=== PATIENT | female | born 1970 | race Caucasian/White ===

== ENCOUNTER → 2017-02-23 | Outpatient (CLI) | payer OTHER ==
[~2017-02-23] MED LIST: CARI1TAB45 PO; CLON1TAB PO; DULO1CAP2 PO; FERR325C PO; FERR325T18 PO; FIBE625T10 PO; FISHCAP4 PO; GABA600T PO; IMIT25TA PO; MAGN250T11 PO; NAPR500T2 PO; OMEP20CA2 PO
== END ==
LOC: CPRE 13:47
PROVIDERS: ATTEND Obstetrics & Gynecology Gynecology
DX: Z01.812 Encounter for preprocedural laboratory examination (principal); N81.11 Cystocele, midline; N81.6 Rectocele

== ENCOUNTER → 2017-03-08 | Day surgery (SDC) | payer OTHER ==
--- NOTE | 2017-02-23 15:11 | MH ---
cc: JAC CONTEH MD,CASIMIRO Farfan MD DATE OF ADMISSION: 03/08/2017 REASON FOR ADMISSION Anterior posterior repair, pelvic repair. DATE OF 1970 HISTORY OF PRESENT ILLNESS The patient is a 46-year-old white female, 2, para 2, who had issues with pelvic organ prolapse and dyspareunia. In the office it was noted that she had a POP-Q score Aa of -1, Ap of +1 and a genital hiatus of 10 with a perineal body of 1. The patient had been given options and has opted for surgical repair. PAST MEDICAL HISTORY Notable for: 1. Neuropathy of uncertain etiology. 2. Irritable bowel syndrome. 3. Mild depression. PAST SURGICAL HISTORY 1. Appendectomy. 2. NovaSure endometrial ablation. ALLERGIES ZOSYN - CAUSES A RASH. MEDICATIONS 1. Omeprazole 20 mg daily. 2. Gabapentin 600 mg b.i.d. 3. Cymbalta 30 mg daily. 4. Clonazepam 1 mg p.r.n. GYNECOLOGIC HISTORY No STDs or abnormal Pap smears. Endometrial ablation by Dr. Dunbar a few weeks ago. OBSTETRICAL HISTORY Two vaginal deliveries, largest baby 9 pounds. FAMILY HISTORY Noncontributory. SOCIAL HISTORY 15 pack-year smoking history, vapes now. No cigarettes. . Has good social support. REVIEW OF SYSTEMS As above. No chest pain, orthopnea, PND. No nausea, vomiting, fevers, chills. No vaginal bleeding or discharge. Main issue is with pelvic organ prolapse or pelvic pressure and lack of sensation during intercourse. PHYSICAL EXAMINATION VITAL SIGNS: On exam she is afebrile. Vital signs are stable. Blood pressure 120/70, height is 5 feet 8 inches, weight is 175, BMI is 27. GENERAL: Patient is alert and oriented, no acute distress. No sign of cognitive dysfunction or depression. HEENT: Within normal limits. NECK: Supple. No JVD. CHEST: Clear. HEART: Regular rate and rhythm. ABDOMEN: Soft, nontender. No hepatosplenomegaly noted. No CVA tenderness. PELVIC EXAM: In the office shows POP-Q score: Aa is -1, Ap is +1. Point C is -6. Genital hiatus is 10. Perineal body is 1. Total vaginal length is 10. Elevator muscle strength is 2/5. Sacral nerve reflexes normal. Further exam under anesthesia. EXTREMITIES: Normal skin without rashes. NEURO EXAM: Nonfocal. No DVT signs. ASSESSMENT Rectocele code N81.6. Patient with stage II/III pelvic organ prolapse, symptomatic and wants to proceed with surgical correction. Cystocele midline N81.11. Discussed options and the patient is aware of the risks, benefits and alternatives and wants to proceed. Loss of perineal body N81.89. Patient is aware of the risks, benefits and alternatives to planned procedure and elects to proceed. In terms of pelvic organ surgery, the patient is aware of the risks, benefits and alternatives of planned procedures and the risks including damage to surrounding organs, bleeding, infection, failure rate, bladder dysfunction, bowel dysfunction and dyspareunia. Aware possibility of transfusion is low but not zero. The patient is likely to have significant discomfort with the repair of the perineal body and will use nonsteroidals and ice packs for that discomfort. We will avoid narcotics. She can continue with her Cymbalta and Neurontin postop. Anticipate outpatient procedure. She will use DVT prophylaxis with sequential compression device and she is to use first generation cephalosporin before, so despite her allergy to a third generation cephalosporin, we can use Ancef 1 gram IV. Anticipate outpatient procedure. MD OBDULIO Hernandez/TLL /2:39 PM /2:47 PM
[~2017-03-08] MED LIST changes: +ACETAMINOPHEN 1000 MG/100 ML 100 ML IV ONE; -CARI1TAB45 PO; +CHLORHEXIDINE GLUCONATE 2 % 1 PACK (2 CLOTHS) TOPICAL PRN; +DO NOT ADM ANY ANTICOAGULANT DRUGS PRN; +FAMOTIDINE 20 MG/2 ML VIAL ONE; -FERR325C PO; +FLUORESCEIN SOD 10% SOLN 500 MG/5 ML AMP ONE; +INSULIN HUMAN REGULAR 1,000 UNITS/10 ML VIAL SQ PRN; +KETOROLAC TROMETHAMINE 30 MG/ML (IVP) VIAL IV PUSH PRN; +KETOROLAC TROMETHAMINE 60 MG/2 ML (IM) VIAL IM PRN; +LACTATED RINGER'S 1000 ML IV PRN; +LIDOCAINE 1%/EPINEPHrine 1:100,000 SOLN 50 ML VIAL ONE; +METHYLENE BLUE 10 MG/ML VIAL OTHER ONE; +METOPROLOL TARTRATE 25 MG TAB PO PRN; +ONDANSETRON HCL 4 MG/2 ML VIAL IV PUSH PRN; +POVIDONE IODINE 5% (ANTISEPSIS KIT) 4 APPLICATIONS EACH NARE PRN; +SODIUM CHLORID 0.9% 500 ML IV PRN; +ceFAZolin 1,000 MG/NS 100 ML IV SCH; +traMADol HCL 50 MG TAB PO PRN
[2017-03-08 10:10] VITALS: BP 111/69; PULSE 56; RESP 16; TEMP 97.4; O2SAT 100
--- NOTE | 2017-03-08 13:00 | MP ---
cc: JAC CONTEH MD, PATRICIA C. MD DATE OF SURGERY: 03/08/2017 PREOPERATIVE DIAGNOSES 1. Rectocele, code N81.6. 2. Cystocele, code N81.10. 3. Loss of perineal body, code N81.89. POSTOPERATIVE DIAGNOSES 1. Rectocele, code N81.6. 2. Cystocele, code N81.10. 3. Loss of perineal body, code N81.89. 4. Enterocele, code N81.5. 5. Uterine prolapse, code N81.2. 6. External sphincter defect, code K62.81. PROCEDURE Anterior posterior repair with enterocele, code 45875. External sphincteroplasty, code K62.81, hysteropexy, code 25920, diagnostic cystoscopy. SURGEON Dr. Conteh. ANESTHESIA General endotracheal. BLOOD LOSS 75 ccs. URINE OUTPUT 200 ccs. TOE FORMER STITCHDOWNS [employer] staff x2. FLUID 1200 ccs crystalloid. FINDINGS External genitalia normal. POP-Q score: Aa is 12, Ap is +1. A subscript a is 0. Point C is -4. Perineal body is 1. Classic dovetail sign noted. Following repair Aa is -3, Ap is -3. Point C is -8. Total vaginal length is 10. General hiatus is 4. Perineal body is 5. Cystoscopy following repair shows normal trigone, good coaptation of urethra. Ureteral orifices patent x2. Dome base of bladder normal. Rectal exam normal following repair. SPECIMENS None. COMPLICATIONS None. DISPOSITION Recovery room stable. COUNTS Needle and sponge count correct. DRAINS Cherry catheter. DVT PROPHYLAXIS Sequential compression device. ANTIBIOTIC PROPHYLAXIS Ancef 2 grams. SUMMARY OF INDICATION FOR PROCEDURE Patient with symptomatic pelvic organ prolapse manifested mainly by rectocele and loss of perineal body with gaping vaginal introitus. PROCEDURE The patient was taken to the operating room theater, identified, prepped and draped in a fashion appropriate for the planned procedure. She was in dorsal lithotomy position with careful attention paid to placement of legs in stirrups to avoid undue stress to sensitive neurovascular structures. Above findings noted. Neurovascular integrity was documented. Cherry catheter was placed. Methylene blue was instilled into the bladder. The most striking finding on the exam was a large vaginal introitus and a very diminished perineal body. Pudendal block was performed and then midline incision was made in the posterior vaginal wall, took this up to the cervix, reflected the vaginal mucosa from the rectum, encountered enterocele which was closed with series of sutures. We then performed rectocele repair in standard fashion with plication and the hysteropexy and apical suspension was a modified coccygeus ligament repair with delayed absorbable suture. Anterior compartment identified, infiltrated with epinephrine lidocaine solution. A midline incision was made, reflected the bladder from the vaginal mucosa. There was no spill of methylene blue. Plication was performed. The vaginal mucosa was trimmed and closed with running Vicryl suture. Hemostatic matrix was used for hemostasis to avoid the need for packing. This was also performed posteriorly. Cystoscopy was performed using 17-Yemeni bridge, a 70 degree scope, above findings noted. The sphincter repair was performed in standard fashion with overlapping technique with delayed absorbable suture. Pop Q score as above following repair. The patient was reversed from anesthesia, taken to the recovery room in stable condition. Most likely will be discharged per protocol after a voiding trial. MD OBDULIO Hernandez/TERESITA /12:12 PM /12:20 PM
== END | disposition home or self-care (01) ==
LOC: HSDC 06:04 → EDUNIT# 08:00
PROVIDERS: ATTEND Obstetrics & Gynecology Gynecology
DX: N81.4 Uterovaginal prolapse, unspecified (principal); N81.6 Rectocele; K62.81 Anal sphincter tear (healed) (nontraumatic) (old); F32.9 Major depressive disorder, single episode, unspecified; Z87.891 Personal history of nicotine dependence
CPT/HCPCS: 00942; 57265; J0131; J0690; J7120